=== PATIENT | female | born 1995 | race Two or more races ===

== ENCOUNTER 2020-10-17 12:27 | Emergency (ER) | payer MEDICAID, SELFPAY ==
--- NOTE | ~2020-10-17 | US_ITS ---
EXAMINATION: US OBSTETRICAL ULTRASOUND CLINICAL INFORMATION: Right lower abdominal pain COMPARISON: None. LMP: 07/11/2020. TECHNIQUE: Sonographic imaging of the pelvis was performed using a transabdominal transducer. FINDINGS: Single viable intrauterine gestation. The heart rate is 152 bpm. The crown-rump length is 8.54 cm, corresponding to estimated gestational age of 14 weeks, 4 days. Estimated date of delivery of 04/13/2021. Normal amniotic fluid volume. Normal anterior placenta. No placental mass or periplacental hemorrhage. MATERNAL ADNEXA: The ovaries are normal. The right ovary is 2.9 x 1.6 x 2.6 cm. The left ovary is 3.6 x 1.8 x 2.6 cm. No adnexal mass. No pelvic free fluid. US/US OB <= 14 weeks fetus IMPRESSION: * Single viable intrauterine gestation. Ultrasound determined gestational age of 14 weeks, 4 days. Estimated date of delivery of 04/13/2021. * Normal ovaries. No adnexal mass or torsion.
[2020-10-17 13:11] VITALS: BP 153/101; PULSE 112; RESP 16; TEMP 36.8; O2SAT 100; BMI 27.0
[2020-10-17 14:46] LABS: MANUAL DIFF FLAG NO
[2020-10-17 14:49] LABS: Basophils Percent Auto 0.2 % (0-2); Eosinophils Absolute Auto 0.1 X10*3/uL (0.0-0.4); Eosinophils Percent Auto 1.3 % (0-4); Hematocrit 36.9 % (37-47); Hemoglobin 11.7 g/dl (12.0-16.0); Imm Gran Abs Auto 0.04 X10*3/uL (0.00-0.03); Imm Gran Pct Auto 0.4 % (0.0-0.4); Lymphocytes Absolute Auto 1.8 X10*3/uL (1.2-4.9); Lymphocytes Percent Auto 17.2 % (20-40); Mean Corpuscular HGB Conc 31.7 g/dl (31.0-35.0); Mean Corpuscular Hemoglobin 23.4 pg (27.0-33.0); Mean Corpuscular Volume 73.9 fL (80-98); Monocytes Absolute Auto 0.6 X10*3/uL (0.1-1.2); Monocytes Percent Auto 5.8 % (2-11); Neutrophils Absolute Auto 7.9 X10*3/uL (2.0-8.3); Neutrophils Percent Auto 75.1 % (45-73); Platelet Count 284 X10*3/uL (160-400); Red Blood Count 4.99 X10*6/uL (4.20-5.50); Red Cell Distribution Width 16.7 % (11.0-16.0); White Blood Count 10.5 X10*3/uL (4.8-10.8)
[2020-10-17 15:14] LABS: Anion Gap 13 (12-20); Blood Urea Nitrogen 5 mg/dL (9-16); Calcium 9.3 mg/dL (8.4-10.2); Carbon Dioxide 22 mmol/L (22-29); Chloride 105 mmol/L (96-108); Estimated Glomerular Filt Rate > 60; Glucose Random 97 mg/dL (60-115); Sodium 136 mmol/L (135-145)
--- NOTE | 2020-10-17 15:33 | ED_ITS ---
HPI - General Adult General Chief complaint: General Medical <Quincy Echevarria Last Filed: 10/17/20 17:44> Stated complaint: ABD PAIN <Quincy Echevarria Last Filed: 10/17/20 17:44> Time Seen by Provider: 10/17/20 15:33 <Quincy Stephens - Last Filed: 10/17/20 17:44> Source: patient <Quincy Echevarria Last Filed: 10/17/20 17:44> Limitations: no limitations <Quincy Stephens - Last Filed: 10/17/20 17:44> History of Present Illness HPI narrative: Patient presents stating she is 8 weeks needs an ultrasound to see if the baby's all right. Patient also complaining of right lower abdominal pain. Patient states some slight nausea no current vomiting at this time. Patient states this is her 1st . Patient denies vaginal bleeding at this time. Patient states she has had ultrasound the past in the [facility] and she was told she did not have a right ovary. No other complaints at this time. <Quincy Stephens - Last Filed: 10/17/20 17:44> Related Data Allergies/adverse reactions: Allergies Allergy/AdvReac Type Severity Reaction Status Date / Time No Known Allergies Allergy Verified 10/17/20 13:13 <Quincy Stephens - Last Filed: 10/17/20 17:44> Review of Systems Review of Systems: Constitutional : No fever chills Eyes: No Eye Pain Cardiovascular : No Chest Pain, No SOB, No Dyspnea on Exertion Respiratory : No Cough, No Sputum, No Wheezing, No Smoke Exposure, No Dyspnea Gastrointestinal : Some nausea no vomiting at this time. Positive for right lower abdominal pain. Genitourinary : Patient denies dysuria frequency or vaginal bleeding at this time. Musculoskeletal : Patient denied joint pain. Neuro : No Weakness, No Numbness, No Paresthesias, No Loss of Consciousness, No Dizziness, No Headache Psych : No Anxiety/Panic, No Depression, No SI/HI/AH/VH, No Social Issues, Heme/Lymph: No Bruising, No Bleeding,No Lymphadenopathy Endocrine : No Polyuria, No Polydipsia, No Temperature Intolerance <Quincy Stephens - Last Filed: 10/17/20 17:44> FOR[facility]LY [facility] Past Medical History Attestation statement: The following information was validated with the patient. <Quincy Stephens - Last Filed: 10/17/20 17:44> [facility] Narrative: Patient denies past medical history. <Quincy Stephens - Last Filed: 10/17/20 17:44> Medical History: Medical History No known health problems <Quincy Stephens - Last Filed: 10/17/20 17:44> Social History Social History: Social History Advance Directives: No Advance Directives Information Provided: Yes Patient : No <Quincy Stephens - Last Filed: 10/17/20 17:44> Physical Exam Vital Signs: Vital Signs: Last Vital Signs Temp 98.0 F 10/17/20 20:00 Pulse 104 H 10/17/20 20:00 Resp 16 10/17/20 20:00 BP 129/82 10/17/20 20:00 Pulse Ox 99 10/17/20 20:00 Body Mass Index 27.0 vital signs have been reviewed as normal and appeared to be correct. Blood pressure normal. Heart rate normal. Respiration rate normal. Temperature normal. Oxygen saturation normal. <Quincy Stephens - Last Filed: 10/17/20 17:44> Vital Signs: Last Vital Signs Temp 98.0 F 10/17/20 20:00 Pulse 104 H 10/17/20 20:00 Resp 16 10/17/20 20:00 BP 129/82 10/17/20 20:00 Pulse Ox 99 10/17/20 20:00 Body Mass Index 27.0 <Jamia Mtz NP - Last Filed: 10/18/20 00:13> Appearance: Alert. Oriented X3. No acute distress. Head: Normal external exam. Normocephalic. Atraumatic. No [place] signs noted. No raccoon eyes noted Eyes: PERRLA. EOMI. Conjunctiva and sclera normal. Eyelids normal. ENT: Oral mucosa is moist Neck: Soft full range of motion, no JVD CVS: Heart regular rate and rhythm no murmurs and rubs Respiratory: Breath sounds are clear to auscultation bilaterally. No accessory muscle use noted. Abdomen: The abdomen soft no rebound or guarding some slight tenderness in the right lower quadrant : No cervical motion tenderness no bleeding into the vaginal vault no adnexal tenderness minimal to slight white discharge. Back: No CVA tenderness. Full range of motion noted. Skin: Skin warm and dry. Normal skin color. Normal skin turgor. No rashes/lesions/lacerations noted. Extremities: Moving all extremities no edema noted. Neuro: Oriented X 3. No motor deficit. No sensory deficit. Reflexes normal. <Quincy Stephens - Last Filed: 10/17/20 17:44> Course Course Course Narrative: Quantitative hCG is pending Pelvic exam completed cultures Wet prep pending plan to get less than 14 weeks ultrasound at this time Negative for Trichomonas 5:45 p.m. Signed out to Jamia Romero NP US pending <Quincy Stephens - Last Filed: 10/17/20 17:44> Ultrasound is negative, normal intrauterine at 14 weeks. Patient was advised to follow-up with her OBGYN. Patient verbalized understanding of and agrees plan of care discharge home. <Jamia Mtz NP - Last Filed: 10/18/20 00:13> Medical Decision Making Lab Data Result diagrams: : 10/17/20 14:33 10/17/20 14:33 <Quincy Stephens - Last Filed: 10/17/20 17:44> Labs: Lab Results 10/17/20 10/17/20 10/17/20 Range/Units 14:33 14:33 16:09 WBC 10.5 (4.8-10.8) X10*3/uL RBC 4.99 (4.20-5.50) X10*6/uL Hgb 11.7 L (12.0-16.0) g/dl Hct 36.9 L (37-47) % MCV 73.9 L (80-98) fL MCH 23.4 L (27.0-33.0) pg MCHC 31.7 (31.0-35.0) g/dl RDW 16.7 H (11.0-16.0) % Plt Count 284 (160-400) X10*3/uL MPV 9.0 L (9.4-12.3) fL Immature Gran % (Auto) 0.4 (0.0-0.4) % Neut % (Auto) 75.1 H (45-73) % Lymph % (Auto) 17.2 L (20-40) % Wood % (Auto) 5.8 (2-11) % Eos % (Auto) 1.3 (0-4) % Baso % (Auto) 0.2 (0-2) % Lymph # (Auto) 1.8 (1.2-4.9) X10*3/uL Wood # (Auto) 0.6 (0.1-1.2) X10*3/uL Eos # (Auto) 0.1 (0.0-0.4) X10*3/uL Baso # (Auto) 0.0 (0.0-0.2) X10*3/uL Abs Immat Gran (auto) 0.04 H (0.00-0.03) X10*3/uL Absolute Neuts (auto) 7.9 (2.0-8.3) X10*3/uL Absolute Nucleated RBC 0.000 (0.0-0.012) X10*3/uL Nucleated RBC % (auto) 0.0 (0.0-0.2) /100WBC Sodium 136 (135-145) mmol/L Potassium 4.0 (3.3-5.1) mmol/L Chloride 105 (96-108) mmol/L Carbon Dioxide 22 (22-29) mmol/L Anion Gap 13 (12-20) BUN 5 L (9-16) mg/dL Creatinine 0.52 (0.5-1.4) mg/dL Estim Creat Clear Calc 87.0 Estimated GFR > 60 Random Glucose 97 (60-115) mg/dL Calcium 9.3 (8.4-10.2) mg/dL Beta HCG, Quant 45295 mIU/mL <Quincy Stephens - Last Filed: 10/17/20 17:44> Lab Results 10/17/20 10/17/20 10/17/20 Range/Units 14:33 14:33 16:09 WBC 10.5 (4.8-10.8) X10*3/uL RBC 4.99 (4.20-5.50) X10*6/uL Hgb 11.7 L (12.0-16.0) g/dl Hct 36.9 L (37-47) % MCV 73.9 L (80-98) fL MCH 23.4 L (27.0-33.0) pg MCHC 31.7 (31.0-35.0) g/dl RDW 16.7 H (11.0-16.0) % Plt Count 284 (160-400) X10*3/uL MPV 9.0 L (9.4-12.3) fL Immature Gran % (Auto) 0.4 (0.0-0.4) % Neut % (Auto) 75.1 H (45-73) % Lymph % (Auto) 17.2 L (20-40) % Wood % (Auto) 5.8 (2-11) % Eos % (Auto) 1.3 (0-4) % Baso % (Auto) 0.2 (0-2) % Lymph # (Auto) 1.8 (1.2-4.9) X10*3/uL Wood # (Auto) 0.6 (0.1-1.2) X10*3/uL Eos # (Auto) 0.1 (0.0-0.4) X10*3/uL Baso # (Auto) 0.0 (0.0-0.2) X10*3/uL Abs Immat Gran (auto) 0.04 H (0.00-0.03) X10*3/uL Absolute Neuts (auto) 7.9 (2.0-8.3) X10*3/uL Absolute Nucleated RBC 0.000 (0.0-0.012) X10*3/uL Nucleated RBC % (auto) 0.0 (0.0-0.2) /100WBC Sodium 136 (135-145) mmol/L Potassium 4.0 (3.3-5.1) mmol/L Chloride 105 (96-108) mmol/L Carbon Dioxide 22 (22-29) mmol/L Anion Gap 13 (12-20) BUN 5 L (9-16) mg/dL Creatinine 0.52 (0.5-1.4) mg/dL Estim Creat Clear Calc 87.0 Estimated GFR > 60 Random Glucose 97 (60-115) mg/dL Calcium 9.3 (8.4-10.2) mg/dL Beta HCG, Quant 37301 mIU/mL <Jamia Mtz NP - Last Filed: 10/18/20 00:13> Imaging Data ultrasound: Attestation: I personally reviewed and interpreted this imaging study as follows: <Jamia Mtz NP - Last Filed: 10/18/20 00:13> Radiologist's impression: EXAMINATION: US OBSTETRICAL ULTRASOUND CLINICAL INFORMATION: Right lower abdominal pain COMPARISON: None. LMP: 07/11/2020. TECHNIQUE: Sonographic imaging of the pelvis was performed using a transabdominal transducer. FINDINGS: Single viable intrauterine gestation. The heart rate is 152 bpm. The crown-rump length is 8.54 cm, corresponding to estimated gestational age of 14 weeks, 4 days. Estimated date of delivery of 04/13/2021. Normal amniotic fluid volume. Normal anterior placenta. No placental mass or periplacental hemorrhage. MATERNAL ADNEXA: The ovaries are normal. The right ovary is 2.9 x 1.6 x 2.6 cm. The left ovary is 3.6 x 1.8 x 2.6 cm. No adnexal mass. No pelvic free fluid. US/US OB <= 14 weeks fetus IMPRESSION: * Single viable intrauterine gestation. Ultrasound determined gestational age of 14 weeks, 4 days. Estimated date of delivery of 04/13/2021. * Normal ovaries. No adnexal mass or torsion. <Jamia Mtz NP - Last Filed: 10/18/20 00:13> Discharge Plan Discharge Clinical Impression: Abdominal pain <Quincy Stephens - Last Filed: 10/17/20 17:44> Patient Disposition: Home, Self-Care <Quincy Stephens - Last Filed: 10/17/20 17:44> Instructions: Abdominal Pain in (ED) <Quincy Stephens - Last Filed: 10/17/20 17:44> Additional Instructions: You were evaluated for abdominal pain. Your pelvic ultrasound shows a normal intrauterine . There are no other abnormal findings on this exam. Please follow-up with your OBGYN, call and request an appointment tomorrow. Thank you for choosing this emergency department for evaluation. Please follow-up with primary care physician as needed. Return to the emergency department for any new, concerning, or worsening symptoms. <Quincy Stephens - Last Filed: 10/17/20 17:44> Interventions: ED Discharge Assessment Last Done: 10/17/20 20:41 <Quincy Stephens - Last Filed: 10/17/20 17:44> Discharge Date/Time: 10/17/20 20:43 <Quincy Stephens - Last Filed: 10/17/20 17:44>
[2020-10-17 16:22] VITALS: BP 127/80; PULSE 110; RESP 18; O2SAT 98
[2020-10-17 20:00] VITALS: BP 129/82; PULSE 104; RESP 16; TEMP 36.7; O2SAT 99
--- NOTE | 2020-10-17 20:40 | PC.NURSE ---
PT REEVALED BY PROVIDER. ULTRASOUND NORMAL . NO BLEEDING. NO VOMITING. PT AWARE OF PLAN OF CARE.
[2020-10-18 09:53] LABS: CT PCR NOT DETECTED (Not Detect.); NG PCR NOT DETECTED (Not Detect.)
[2020-10-18 12:27] LABS: BV Int Neg Control Negative (Negative); BV Int Pos Control Positive (Positive)
== END 2020-10-17 20:43 | disposition home or self-care (01) ==
PROVIDERS: Physician Assistant; Emergency Provider Emergency Medicine
DX: O26.891 Other specified pregnancy related conditions, first trimester (principal); R10.31 Right lower quadrant pain; Z3A.14 14 weeks gestation of pregnancy
CPT/HCPCS: 36415; 76801; 80048; 84702; 85025; 87480; 87491; 87510; 87591; 87660; 99284